=== PATIENT | male | born 1950 | race Caucasian/White ===

== ENCOUNTER 2020-06-10 10:38 | Inpatient (IN) | payer MEDICARE, BC ==
[~2020-06-10] VITALS: Ht 180.3 cm; Wt 108.4 kg
[2020-06-10] MEDS ORDERED: TESTOSTERONE75 G1 TD (10:47)
[2020-06-10] MEDS ORDERED: ATOR10 PO (10:48)
[2020-06-10] MEDS ORDERED: METFORMIN HCL500 M3 PO (10:48)
[2020-06-10 11:32] LABS: BASOPHILS ABSOLUTE AUTO 0.05 K/mm3 (0.00-0.23); BASOPHILS PERCENT AUTO 1 % (0-2); EOSINOPHILS ABSOLUTE AUTO 0.11 K/mm3 (0.00-0.68); EOSINOPHILS PERCENT AUTO 1 % (0-6); Hematocrit 49.2 % (37.0-53.0); Hemoglobin 17.2 g/dL (13.5-17.5); IMMATURE GRAN ABSOLUTE AUTO 0.02 K/mm3 (0.00-0.10); IMMATURE GRAN PERCENT AUTO 0 % (0-1); LYMPHOCYTES ABSOLUTE AUTO 2.08 K/mm3 (0.84-5.20); LYMPHOCYTES PERCENT AUTO 23 % (21-46); MONOCYTES ABSOLUTE AUTO 1.03 K/mm3 (0.16-1.47); MONOCYTES PERCENT AUTO 11 % (4-13); Mean Corpuscular Volume 89 fL (80-100); Mean Platelet Volume 10.1 fL (9.1-12.4); NEUTROPHILS ABSOLUTE AUTO 5.94 K/mm3 (1.96-9.15); NEUTROPHILS PERCENT AUTO 64 % (41-73); Platelet Count 166 K/mm3 (150-400); RDW Coefficient Variation 12.5 % (11.7-14.2); Red Blood Cell Count 5.54 M/mm3 (4.30-5.90); White Blood Cell Count 9.23 K/mm3 (4.00-11.30)
[2020-06-10 12:11] LABS: Alanine Aminotransfer (ALT/SGP 48 U/L (12-78); Albumin/Globulin Ratio 1.1 (0.8-1.8); Alk Phos 77 U/L (50-136); Anion Gap 5 mmol/L (6-16); Aspartate Aminotrans (AST/SGOT 55 U/L (12-37); Bilirubin, Total 0.6 mg/dL (0.1-1.0); Blood Urea Nitrogen 12 mg/dL (8-24); Bun/Creatinine Ratio 14.1 (12.0-20.0); CO2, Blood 27 mmol/L (21-32); Calcium, Blood 9.3 mg/dL (8.5-10.1); Chloride, Blood 108 mmol/L (98-108); Creatinine, Blood 0.85 mg/dL (0.60-1.20); Globulin, Blood 3.6 g/dL (2.2-4.0); Glomerular Filtration Rate >60 (60-); Glucose, Blood 98 mg/dL (70-99); Sodium, Blood 140 mmol/L (136-145); Total Protein, Blood 7.6 g/dL (6.4-8.2)
[2020-06-10 13:09] LABS: International Normalized Ratio 0.93; Prothrombin Time Results 10.1 Sec (9.7-11.5)
[2020-06-10 13:39] LABS: CHOL/HDL RATIO 3.7; Cholesterol 176 mg/dL (50-200); HDL Cholesterol 47 mg/dL (>39); LDL/HDL RATIO 1.7; Low Density Lipoprotein Chol 78 mg/dL (0-110); Triglycerides 257 mg/dL (30-160); Very Low Density Lipoprot Chol 51 mg/dL (6-32)
[2020-06-10 14:29] LABS: Influenza A, PCR NEGATIVE (NEGATIVE); Influenza B, PCR NEGATIVE (NEGATIVE); Resp Syncytial Virus, PCR NEGATIVE (NEGATIVE); SARS-Cov-2 (COVID-19) PCR, MMC NEGATIVE (NEGATIVE)
--- NOTE | 2020-06-10 18:23 | NUR ---
SHIFT NOTE PT ARRIVED FROM [employer] THIS EVENING POST PCI WITH 3 STENTS PLACED THROUGH RT GROIN ACCESS WITH SUCCESSFUL CLOSURE. NOT ACTIVE BLEEDING NOTED TO GROIN SITE, BOUNDING PEDAL PULSES NOTED BILAT. ATTEMPTED ULNAR AND RADIAL ACCESS TO RT WRIST, TR BAND WAS REMOVED ONCE PT ARRIVED TO THE UNIT, THERE IS CHG DRESSING PLACED TO THE WRIST WITH NO ACTIVE BLEEDING NOTED, BOUNDING PULSES NOTED TO RADIAL BILAT. PT ARRIVES PAIN FREE. STS THAT HE FEELS "MUCH BETTER" POST PCI. PT'S HOB AT 30 DREGREES NOW.
--- NOTE | 2020-06-10 18:38 | NUR ---
PT'S WRIST SITE BEGAN TO OOZE BLOOD, WOUND IS DRESSED IN PRESSURE DRESSING AND ARM BOARD APPLIED
--- NOTE | 2020-06-10 19:10 | NUR ---
ASSUMED CARE RECEIVED BEDSIDE REPORT FROM VICKRN AND CLINICAL BIOCHEMIST STEPHEN; PT A&O X 4; EXPRESSES APPRECIATION FOR STAFF; R RADIAL WRAPPED IN COBAN DUE TO LEAKING, NO SIGN OF LEAKING THROUGH BANDAGE; R FEMORAL SITE HAS SMALL AMOUT OF BLOOD VISIBLE UNDER CHG; HOB @ 30; NO DISTRESS NOTED; VSS; STATES COMPLETELY FREE OF CHEST PAIN; NSR NOTED ON TELE; O2 SATS >93 ON RA; BELONGINGS AND CALL LIGHT IN REACH.
--- NOTE | 2020-06-10 20:45 | NUR ---
UPDATE R FEMORAL SITE ASSESSED AND 3 X 4 CM BLOOD NOTED; SITE NON- TENDER, NO HEMATOMA NOTED; DIESEL DINKEY ENGINEER BROUGHT TO ROOM TO ASSESS; 5LB SAND BAG PLACED AND HOB LOWERED TO FLAT; EDUCATION PROVIDED FOR CONTINUING TO LAY FLAT; PT COMPLIANT AND EXPRESSES UNDERSTANDING; CALL LIGHT IN REACH
--- NOTE | 2020-06-10 22:37 | NUR ---
UPDATE R FEMORAL SITE REMAINS UNCHANGED; PT ASLEEP W/ HOME CPAP IN PLACE
--- NOTE | 2020-06-11 08:03 | NUR ---
SHIFT SUMMARY PT A&O X 4; PLEASANT & COMPLIANT W/ CARE; VSS; NSR NOTED ON TELE; HR 60'S; PRESSURE DRESSING AND ARM BOARD REMAINS IN PLACE; FEMORAL SITE HAS BLOOD NOTED UNDER DRESSING BUT HAS NOT ADVANCED THE LAST HALF OF SHIFT; O2 SATS >93 ON HOME CPAP FOR NOC; SLEPT SEVERAL HOURS IN BETWEEN INTERVENTION; CALL LIGHT IN REACH; BED IN LOWEST POSITION; BEDSIDE REPORT GIVEN TO DAY SHIFT RN STACY.
[2020-06-11] MEDS ORDERED: ASPI81CH PO (10:14)
[2020-06-11] MEDS ORDERED: ATOR80 PO (10:15)
[2020-06-11] MEDS ORDERED: CLOP75 PO (10:17)
[2020-06-11] MEDS ORDERED: LOSA25 PO (10:18)
[2020-06-11] MEDS ORDERED: METO50 PO (10:19)
--- NOTE | 2020-06-11 19:23 | NUR ---
PT D/C TO HOME, NEW MEDICATION/POST ANGIO EDUCATION PROVIDED. PT VERBALIZED UNDERSTANDING. RIGHT GROIN/RADIAL SITE DRSGS CHANGED AT THIS TIME DUE TO PREVIOUS NIGHTS DRAINAGE. IV D/C WNL. PT ENC TO F/U [facility] FOR ANY PROBLEMS OR CONCERNS
== END 2020-06-11 12:30 | disposition home or self-care (01) | DRG 247 ==
LOC: ER 10:38 → ERHOLD 13:07 → PCU 13:07
PROVIDERS: Emergency Medicine; Pharmacist; Physician Assistant; ADMIT Internal Medicine
PROC: 027236Z Dilation of Coronary Artery, Three Arteries with Three Drug-eluting Intraluminal Devices, Percutaneous Approach (ICD-10-PCS; principal; 2020-06-10)
PROC: 4A023N7 Measurement of Cardiac Sampling and Pressure, Left Heart, Percutaneous Approach (ICD-10-PCS; 2020-06-10)
PROC: B2111ZZ Fluoroscopy of Multiple Coronary Arteries using Low Osmolar Contrast (ICD-10-PCS; 2020-06-10)
DX: I21.4 Non-ST elevation (NSTEMI) myocardial infarction (principal); Z20.822 Contact with and (suspected) exposure to COVID-19; I10 Essential (primary) hypertension; E66.9 Obesity, unspecified; E78.5 Hyperlipidemia, unspecified; G47.33 Obstructive sleep apnea (adult) (pediatric); E11.9 Type 2 diabetes mellitus without complications; F17.290 Nicotine dependence, other tobacco product, uncomplicated; Z68.33 Body mass index [BMI] 33.0-33.9, adult; Z79.84 Long term (current) use of oral hypoglycemic drugs; Z79.899 Other long term (current) drug therapy
CPT/HCPCS: 0241U; 36415; 71046; 76937; 80053; 80061; 82947; 83036; 83690; 84484; 85025; 85347; 85610; 85730; 93005; 93010; 93454; 94762; 96374; 99152; 99153; 99285-25; A9270; A9270-GY; C1725; C1760; C1769; C1874; C1887; C1894; C9600; J1644; J2250; J3010; J7030; J7050; Q9967